=== PATIENT | male | born 1995 | race Caucasian/White ===

== ENCOUNTER 2019-04-01 02:00 | Emergency (ER) | payer BC ==
[~2019-04-01] VITALS: Ht 167.6 cm; Wt 67.6 kg
[2019-04-01 02:06] VITALS: Ht 167.6 cm; Wt 67.6 kg
[2019-04-01 05:54] VITALS: BP 116/41
== END 2019-04-01 05:54 | disposition home or self-care (01) ==
LOC: ED 02:00
DX: B34.9 Viral infection, unspecified (principal); R51 Headache

== ENCOUNTER 2019-04-03 01:40 | Emergency (ER) | payer BC ==
[~2019-04-03] VITALS: Ht 167.6 cm; Wt 68.0 kg
[2019-04-03 01:46] VITALS: Ht 167.6 cm; Wt 68.0 kg
[2019-04-03 02:27] LABS: BASOPHIL % 0.9 % (0-2); PLATELET COUNT 211 x10^3mcL (130-400); RED CELL DISTRIBUTION WIDTH 12.3 % (11.5-14.5)
[2019-04-03 02:36] LABS: C REACTIVE PROTEIN 3.5 mg/dL (<=0.9); URIC ACID 4.7 mg/dL (3.5-7.2)
[2019-04-03 03:13] VITALS: BP 157/84
== END 2019-04-03 03:13 | disposition home or self-care (01) ==
LOC: ED 01:40
PROVIDERS: Emergency Medicine
DX: L08.9 Local infection of the skin and subcutaneous tissue, unspecified (principal); R21 Rash and other nonspecific skin eruption
CPT/HCPCS: 36415

== ENCOUNTER 2020-03-30 18:18 | Emergency (ER) | payer BC ==
[~2020-03-30] VITALS: Ht 172.7 cm; Wt 68.0 kg
[2020-03-30 18:40] VITALS: Ht 172.7 cm; Wt 68.0 kg
[2020-03-30 20:20] LABS: microscopic required? NO
[2020-03-30 20:37] VITALS: BP 129/75
[2020-03-30 20:45] LABS: UA SPECIFIC GRAVITY 1.015 (1.005-1.035); urine erythrocyte NEGATIVE (NEGATIVE)
== END 2020-03-30 20:37 | disposition home or self-care (01) ==
LOC: ED 18:18
PROVIDERS: Specialist
DX: R22.2 Localized swelling, mass and lump, trunk (principal)
CPT/HCPCS: 87491; 87591